=== PATIENT | male | born 1975 | race African-American/Black ===

== ENCOUNTER 2017-04-12 09:30 | Inpatient (IN) | payer OTHER ==
[~2017-04-12] VITALS: Ht 165.1 cm; Wt 81.6 kg
[~2017-04-12 09:30] MED LIST: BACTROBAN OINT22 GM TP; CETAPHIL1 BAR TP; COUGH CONT100 MG/5 M PO; HIBICLENS118 ML TP; LEVSIN/SL0.125 MG SL; NABUMETONE750 MG; NEURONTIN300 MG; PHOSLO667 M1 PO; PROCTOFOAM-HC 110 GM RC; PROTONIX40 MG PO; RELAFEN500 MG PO; RENVELA800 MG; RIFAMPIN300 MG; SEPTRA DS TABLE1 TAB PO; TESSALON PERLE100 M1 PO; TUSSI-PRES LIQ118 ML PO; ZYRTEC10 M3 PO; ZYRTEC10 MG
[2017-04-12] MEDS ORDERED: LOPID PO (12:23)
[2017-04-12] MEDS ORDERED: KAYEXALATE15 GM/60 M PO (12:23)
[2017-04-12] MEDS ORDERED: RENVELA (12:24)
[2017-04-30] MEDS ORDERED: OXYC1TAB9 PO (13:20)
[2017-04-30] MEDS ORDERED: Intestinex CAP PO (13:20)
== END 2017-04-30 17:14 | disposition home or self-care (01) | DRG 329 ==
LOC: SURH 04-23 08:03 → O/R 04-23 08:03 → SURG 04-23 09:30 → SURH 04-23 19:10
PROVIDERS: Surgery
PROC: 0DT80ZZ Resection of Small Intestine, Open Approach (ICD-10-PCS; 2017-04-23)
PROC: 0DC80ZZ Extirpation of Matter from Small Intestine, Open Approach (ICD-10-PCS; 2017-04-23)
PROC: 0DJD8ZZ Inspection of Lower Intestinal Tract, Via Natural or Artificial Opening Endoscopic (ICD-10-PCS; 2017-04-23)
PROC: 0DTN0ZZ Resection of Sigmoid Colon, Open Approach (ICD-10-PCS; principal; 2017-04-23 14:00)
PROC: 0DJD4ZZ Inspection of Lower Intestinal Tract, Percutaneous Endoscopic Approach (ICD-10-PCS; 2017-04-23 14:00)
PROC: 5A1D70Z Performance of Urinary Filtration, Intermittent, Less than 6 Hours Per Day (ICD-10-PCS; 2017-04-24)
PROC: 3E0F7GC Introduction of Other Therapeutic Substance into Respiratory Tract, Via Natural or Artificial Opening (ICD-10-PCS; 2017-04-25)
DX: K57.20 Diverticulitis of large intestine with perforation and abscess without bleeding (principal); N18.6 End stage renal disease; K63.2 Fistula of intestine; Z99.2 Dependence on renal dialysis; E87.5 Hyperkalemia; R05 Cough; R06.2 Wheezing

== ENCOUNTER → 2017-05-29 | Outpatient (CLI) | payer OTHER ==
[~2017-05-29] MED LIST changes: +ACIDOPHILUS1 EAC3 PO; +AMOX-CLAV 875-1 EACH PO; +Intestinex CAP PO; +KAYEXALATE15 GM/60 M PO; +LOPID PO; +OXYC1TAB9 PO; +RENVELA
== END | disposition home or self-care (01) ==
LOC: WOUND MED 09:43 → EDSTATUS 09:44
DX: T81.32XA Disruption of internal operation (surgical) wound, not elsewhere classified, initial encounter (principal)
CPT/HCPCS: 11042; A4554; A4930; A6216; G0463

== ENCOUNTER → 2017-06-05 | Outpatient (CLI) | payer OTHER | END | disposition home or self-care (01) | LOC: WOUND MED 10:20 → EDSTATUS 16:05 | DX: T81.32XD Disruption of internal operation (surgical) wound, not elsewhere classified, subsequent encounter (principal) | CPT/HCPCS: 11042; A4554; A4930; A6216; A6219 ==

== ENCOUNTER → 2017-06-12 | Outpatient (CLI) | payer OTHER | END | disposition home or self-care (01) | LOC: WOUND MED 09:13 | DX: T81.32XD Disruption of internal operation (surgical) wound, not elsewhere classified, subsequent encounter (principal) | CPT/HCPCS: 11042; A4554; A4930; A6216; A6219 ==

== ENCOUNTER → 2017-06-19 | Outpatient (CLI) | payer OTHER | END | disposition home or self-care (01) | LOC: WOUND MED 10:23 | DX: T81.32XD Disruption of internal operation (surgical) wound, not elsewhere classified, subsequent encounter (principal) | CPT/HCPCS: 11042; A4554; A4930; A6212; A6216; A6219 ==

== ENCOUNTER → 2017-06-26 | Outpatient (CLI) | payer OTHER | END | disposition home or self-care (01) | LOC: WOUND MED 09:37 | DX: T81.32XD Disruption of internal operation (surgical) wound, not elsewhere classified, subsequent encounter (principal) | CPT/HCPCS: 11042; A4554; A4930; A6212; A6216; A6219 ==

== ENCOUNTER → 2017-07-03 | Outpatient (CLI) | payer OTHER | END | disposition home or self-care (01) | LOC: WOUND MED 10:43 | DX: T81.32XD Disruption of internal operation (surgical) wound, not elsewhere classified, subsequent encounter (principal) | CPT/HCPCS: A4554; A4930; A6216; G0463 ==

== ENCOUNTER → 2017-08-09 | Emergency (ER) | payer OTHER ==
[~2017-08-09] VITALS: Ht 165.1 cm; Wt 83.3 kg
== END | disposition home or self-care (01) ==
LOC: ER 07:03
DX: M35.4 Diffuse (eosinophilic) fasciitis (principal)

== ENCOUNTER 2017-08-30 11:16 | Emergency (ER) | payer OTHER ==
[~2017-08-30] VITALS: Ht 170.2 cm; Wt 83.5 kg
[2017-08-30] MEDS ORDERED: ANALPRAM HC 2.530 GM RECTAL (12:24)
[2017-08-30] MEDS ORDERED: BENADRYL25 MG PO (12:24)
== END 2017-08-30 12:40 | disposition home or self-care (01) ==
LOC: ER 11:16
DX: L29.0 Pruritus ani (principal)

== ENCOUNTER 2017-10-20 08:33 | Emergency (ER) | payer OTHER ==
[~2017-10-20] VITALS: Ht 165.1 cm; Wt 87.1 kg
[~2017-10-20 08:33] MED LIST changes: +ANALPRAM HC 2.530 GM RECTAL; +BENADRYL25 MG PO
== END 2017-10-20 09:50 | disposition home or self-care (01) ==
LOC: ER 08:33
DX: K59.09 Other constipation (principal)

== ENCOUNTER 2017-11-24 08:14 | Emergency (ER) | payer OTHER ==
[~2017-11-24] VITALS: Ht 165.1 cm; Wt 86.6 kg
== END 2017-11-24 10:22 | disposition home or self-care (01) ==
LOC: ER 08:14
DX: R10.2 Pelvic and perineal pain (principal)

== ENCOUNTER → 2017-12-11 06:34 | Outpatient (CLI) | payer OTHER | END | disposition home or self-care (01) | LOC: LAB 06:34 | DX: E03.8 Other specified hypothyroidism (principal) ==

== ENCOUNTER 2017-12-11 13:12 | Outpatient (CLI) | payer OTHER | END 2017-12-11 18:59 | disposition home or self-care (01) | LOC: NUCLEAR 13:12 | DX: I42.8 Other cardiomyopathies (principal) | CPT/HCPCS: 78472; 78496; A9560 ==

== ENCOUNTER 2017-12-15 17:55 | Emergency (ER) | payer OTHER ==
[~2017-12-15] VITALS: Ht 165.1 cm; Wt 85.3 kg
== END 2017-12-15 22:14 | disposition home or self-care (01) ==
LOC: ER 17:55
DX: I95.89 Other hypotension (principal); N19 Unspecified kidney failure; R42 Dizziness and giddiness; Z99.2 Dependence on renal dialysis

== ENCOUNTER 2018-02-07 08:59 | Outpatient (CLI) | payer OTHER | END 2018-02-07 09:03 | disposition home or self-care (01) | LOC: LAB 08:59 | DX: E03.9 Hypothyroidism, unspecified (principal) ==

== ENCOUNTER 2018-03-12 09:16 | Emergency (ER) | payer OTHER ==
[~2018-03-12] VITALS: Ht 165.1 cm; Wt 90.7 kg
== END 2018-03-12 14:09 | disposition home or self-care (01) ==
LOC: ER 09:16
DX: M75.52 Bursitis of left shoulder (principal)

== ENCOUNTER → 2018-05-11 | Emergency (ER) | payer OTHER ==
[~2018-05-11] VITALS: Ht 165.1 cm; Wt 90.7 kg
[~2018-05-11] MED LIST changes: +KAYEXALATE15 GM/60 M; +ZANTAC300 MG
== END | disposition home or self-care (01) ==
LOC: ER 07:33
DX: K21.9 Gastro-esophageal reflux disease without esophagitis (principal)

== ENCOUNTER 2018-07-03 12:57 | Emergency (ER) | payer OTHER ==
[~2018-07-03] VITALS: Ht 165.1 cm; Wt 87.1 kg
== END 2018-07-03 16:30 | disposition home or self-care (01) ==
LOC: ER 12:57
DX: S70.02XA Contusion of left hip, initial encounter (principal); W18.09XA Striking against other object with subsequent fall, initial encounter; Y93.89 Activity, other specified; Y92.018 Other place in single-family (private) house as the place of occurrence of the external cause; Y99.8 Other external cause status

== ENCOUNTER 2018-10-31 09:38 | Emergency (ER) | payer OTHER ==
[~2018-10-31] VITALS: Ht 167.6 cm; Wt 87.5 kg
== END 2018-10-31 14:00 | disposition home or self-care (01) ==
LOC: ER 09:38
DX: R53.81 Other malaise (principal)

== ENCOUNTER → 2019-07-05 | Emergency (ER) | payer OTHER ==
[~2019-07-05] VITALS: Ht 165.1 cm; Wt 86.2 kg
[~2019-07-05] MED LIST changes: +STOOL SOFTENER100 M1 PO
== END | disposition home or self-care (01) ==
LOC: ER 01:25
DX: K62.89 Other specified diseases of anus and rectum (principal)

== ENCOUNTER 2019-07-08 08:37 | Outpatient (CLI) | payer OTHER | END 2019-07-08 10:00 | disposition home or self-care (01) | LOC: WOUND MED 08:37 | DX: L98.492 Non-pressure chronic ulcer of skin of other sites with fat layer exposed (principal) | CPT/HCPCS: G0463; A4554; A4930; A6216; A6219 ==

== ENCOUNTER 2019-07-15 09:02 | Outpatient (CLI) | payer OTHER | END 2019-07-15 10:00 | disposition home or self-care (01) | LOC: WOUND MED 09:02 | DX: L98.492 Non-pressure chronic ulcer of skin of other sites with fat layer exposed (principal) | CPT/HCPCS: 11042; A4554; A4930; A6021; A6216; A6219 ==

== ENCOUNTER 2019-07-22 08:55 | Outpatient (CLI) | payer OTHER | END 2019-07-22 09:30 | disposition home or self-care (01) | LOC: WOUND MED 08:55 | DX: L98.492 Non-pressure chronic ulcer of skin of other sites with fat layer exposed (principal) | CPT/HCPCS: 11042; A4554; A4930; A6216; A6219 ==

== ENCOUNTER 2019-07-29 08:49 | Outpatient (CLI) | payer OTHER | END 2019-07-29 09:22 | disposition home or self-care (01) | LOC: WOUND MED 08:49 | DX: L98.492 Non-pressure chronic ulcer of skin of other sites with fat layer exposed (principal) | CPT/HCPCS: 11042; A4554; A4930; A6021; A6216 ==

== ENCOUNTER 2019-08-05 07:46 | Outpatient (CLI) | payer OTHER | END 2019-08-05 08:34 | disposition home or self-care (01) | LOC: WOUND MED 07:46 | DX: L98.492 Non-pressure chronic ulcer of skin of other sites with fat layer exposed (principal) | CPT/HCPCS: 11042; A4554; A4930; A6216; A6219 ==

== ENCOUNTER 2019-08-12 09:55 | Outpatient (CLI) | payer OTHER | END 2019-08-12 10:30 | disposition home or self-care (01) | LOC: WOUND MED 09:55 | DX: L98.492 Non-pressure chronic ulcer of skin of other sites with fat layer exposed (principal) | CPT/HCPCS: 11042; A4554; A4930; A6216; A6219 ==

== ENCOUNTER 2019-08-19 07:41 | Outpatient (CLI) | payer OTHER | END 2019-08-19 11:45 | disposition home or self-care (01) | LOC: WOUND MED 07:41 | DX: L98.492 Non-pressure chronic ulcer of skin of other sites with fat layer exposed (principal) | CPT/HCPCS: G0463; A4554; A4930; A6216 ==

== ENCOUNTER 2019-10-30 06:08 | Emergency (ER) | payer OTHER ==
[~2019-10-30] VITALS: Ht 165.1 cm; Wt 83.9 kg
[2019-10-30] MEDS ORDERED: NEURONTIN300 MG (06:34)
[2019-10-30] MEDS ORDERED: NASAL MIST126 ML (06:34)
== END 2019-10-30 12:10 | disposition home or self-care (01) ==
LOC: ER 06:08
DX: M79.671 Pain in right foot (principal); Z87.81 Personal history of (healed) traumatic fracture

== ENCOUNTER 2020-01-17 17:38 | Emergency (ER) | payer OTHER ==
[~2020-01-17] VITALS: Ht 165.1 cm; Wt 86.2 kg
[~2020-01-17 17:38] MED LIST changes: +NASAL MIST126 ML
[2020-01-17] MEDS ORDERED: CALCIUM ACETATE (18:31)
== END 2020-01-17 22:18 | disposition home or self-care (01) ==
LOC: ER 17:38
DX: K64.4 Residual hemorrhoidal skin tags (principal)

== ENCOUNTER 2020-01-21 00:22 | Emergency (ER) | payer OTHER ==
[~2020-01-21] VITALS: Ht 165.1 cm; Wt 87.1 kg
[~2020-01-21 00:22] MED LIST changes: +CALCIUM ACETATE
[2020-01-21] MEDS ORDERED: MOBIC15 MG PO ×2 (02:51→02:52)
[2020-01-21] MEDS ORDERED: ANUSOL-HC25 MG RECTAL (02:51)
== END 2020-01-21 03:09 | disposition home or self-care (01) ==
LOC: ER 00:22
DX: K64.8 Other hemorrhoids (principal)

== ENCOUNTER 2020-02-12 08:59 | Emergency (ER) | payer OTHER ==
[~2020-02-12] VITALS: Ht 165.1 cm; Wt 86.2 kg
[~2020-02-12 08:59] MED LIST changes: +ANUSOL-HC25 MG RECTAL; +MOBIC15 MG PO
[2020-02-12] MEDS ORDERED: RECTICARE30 GM TOP (12:18)
[2020-02-12] MEDS ORDERED: POLY119PG PO (12:18)
== END 2020-02-12 12:31 | disposition home or self-care (01) ==
LOC: ER 08:59
DX: K64.8 Other hemorrhoids (principal); K62.89 Other specified diseases of anus and rectum; Z03.818 Encounter for observation for suspected exposure to other biological agents ruled out

== ENCOUNTER 2020-03-25 05:35 | Day surgery (SDC) | payer OTHER ==
[~2020-03-25 05:35] MED LIST changes: +NABUMETONE750 MG PO; +POLY119PG PO; +RECTICARE30 GM TOP
[2020-03-25] MEDS ORDERED: RECTICARE30 GM TOP (08:39)
[2020-03-25] MEDS ORDERED: PERCOCET 5-3251 EACH PO (08:39)
== END 2020-03-25 15:30 | disposition home or self-care (01) ==
LOC: CIR.AMB 05:35 → EDBD 09:00 → CIR.AMB 09:00
PROVIDERS: ATTEND Surgery
DX: K60.1 Chronic anal fissure (principal); Z20.828 Contact with and (suspected) exposure to other viral communicable diseases

== ENCOUNTER 2020-06-10 17:31 | Emergency (ER) | payer OTHER ==
[~2020-06-10] VITALS: Ht 165.1 cm; Wt 89.8 kg
[~2020-06-10 17:31] MED LIST changes: +PERCOCET 5-3251 EACH PO
== END 2020-06-10 19:52 | disposition home or self-care (01) ==
LOC: ER 17:31
DX: H92.02 Otalgia, left ear (principal); T16.2XXA Foreign body in left ear, initial encounter; X58.XXXA Exposure to other specified factors, initial encounter; Y93.89 Activity, other specified; Y92.89 Other specified places as the place of occurrence of the external cause; Y99.8 Other external cause status

== ENCOUNTER 2020-06-29 09:12 | Outpatient (CLI) | payer OTHER | END 2020-06-29 10:00 | disposition home or self-care (01) | LOC: WOUND MED 09:12 | PROVIDERS: ATTEND Specialist | DX: L98.498 Non-pressure chronic ulcer of skin of other sites with other specified severity (principal); L08.89 Other specified local infections of the skin and subcutaneous tissue | CPT/HCPCS: 11042; A4554; A4930; A6216; A6219; G0463 ==

== ENCOUNTER 2020-07-02 12:57 | Outpatient (CLI) | payer OTHER | END 2020-07-02 13:15 | disposition home or self-care (01) | LOC: WOUND MED 12:57 | PROVIDERS: ATTEND Specialist | DX: L98.498 Non-pressure chronic ulcer of skin of other sites with other specified severity (principal); L08.89 Other specified local infections of the skin and subcutaneous tissue | CPT/HCPCS: 97602; A4554; A4930; A6021; A6216; A6219 ==

== ENCOUNTER 2020-07-06 09:08 | Outpatient (CLI) | payer OTHER | END 2020-07-06 11:33 | disposition home or self-care (01) | LOC: WOUND MED 09:08 | PROVIDERS: ATTEND Specialist | DX: L98.498 Non-pressure chronic ulcer of skin of other sites with other specified severity (principal); L08.89 Other specified local infections of the skin and subcutaneous tissue | CPT/HCPCS: 11042; A4554; A4930; A6216 ==

== ENCOUNTER 2020-07-08 12:42 | Outpatient (CLI) | payer OTHER | END 2020-07-08 14:40 | disposition home or self-care (01) | LOC: WOUND MED 12:42 | PROVIDERS: ATTEND Specialist | DX: L98.498 Non-pressure chronic ulcer of skin of other sites with other specified severity (principal); L08.89 Other specified local infections of the skin and subcutaneous tissue | CPT/HCPCS: 97602; A4554; A4930; A6216; A6219; A6220 ==

== ENCOUNTER 2020-07-13 10:54 | Outpatient (CLI) | payer OTHER | END 2020-07-13 11:45 | disposition home or self-care (01) | LOC: WOUND MED 10:54 | PROVIDERS: ATTEND Specialist | DX: L98.498 Non-pressure chronic ulcer of skin of other sites with other specified severity (principal) | CPT/HCPCS: 11042; A4554; A4930; A6216; A6219 ==

== ENCOUNTER 2020-07-20 10:15 | Outpatient (CLI) | payer OTHER | END 2020-07-20 11:18 | disposition home or self-care (01) | LOC: WOUND MED 10:15 | PROVIDERS: ATTEND Specialist | DX: L98.498 Non-pressure chronic ulcer of skin of other sites with other specified severity (principal) | CPT/HCPCS: G0463; A4554; A4930; A6216 ==

== ENCOUNTER 2021-03-15 08:53 | Emergency (ER) | payer OTHER ==
[~2021-03-15] VITALS: Ht 165.1 cm; Wt 84.8 kg
[~2021-03-15 08:53] MED LIST changes: +[UNRECOGNIZED DRUG - OTHER]; +[UNRECOGNIZED DRUG - OTHER]
[2021-03-15] MEDS ORDERED: [UNRECOGNIZED DRUG - OTHER] (09:08)
[2021-03-15] MEDS ORDERED: SKELAGESIC PO (12:56)
[2021-03-24] MEDS ORDERED: PHOSLO (18:48)
[2021-03-24] MEDS ORDERED: MOTRIN 800 MG. (18:48)
== END 2021-03-15 13:11 | disposition home or self-care (01) ==
LOC: ER 08:53
DX: M89.8X1 Other specified disorders of bone, shoulder (principal)

== ENCOUNTER → 2021-03-24 | Emergency (ER) | payer OTHER ==
[~2021-03-24] VITALS: Ht 165.1 cm; Wt 84.8 kg
[~2021-03-24] MED LIST changes: +MOTRIN 800 MG.; +PHOSLO; +SKELAGESIC PO; +[UNRECOGNIZED DRUG - OTHER]
== END | disposition home or self-care (01) ==
LOC: ER 18:05
DX: T82.898A Other specified complication of vascular prosthetic devices, implants and grafts, initial encounter (principal); T81.30XA Disruption of wound, unspecified, initial encounter

== ENCOUNTER 2021-04-26 10:57 | Outpatient (CLI) | payer OTHER | END 2021-04-26 15:36 | disposition home or self-care (01) | LOC: WOUND MED 10:57 | PROVIDERS: ATTEND Specialist | DX: L97.111 Non-pressure chronic ulcer of right thigh limited to breakdown of skin (principal); R60.0 Localized edema | CPT/HCPCS: A4554; A4930; A6216; A6219; G0463 ==

== ENCOUNTER 2021-05-03 09:31 | Outpatient (CLI) | payer OTHER | END 2021-05-03 14:26 | disposition home or self-care (01) | LOC: WOUND MED 09:31 | PROVIDERS: ATTEND Specialist | DX: L97.111 Non-pressure chronic ulcer of right thigh limited to breakdown of skin (principal); R60.0 Localized edema | CPT/HCPCS: 11042; A4554; A4930; A6216; A6219 ==

== ENCOUNTER 2021-05-24 09:34 | Outpatient (CLI) | payer OTHER | END 2021-05-24 10:00 | disposition home or self-care (01) | LOC: WOUND MED 09:34 | PROVIDERS: ATTEND Specialist | DX: E11.22 Type 2 diabetes mellitus with diabetic chronic kidney disease (principal); N18.6 End stage renal disease; T82.41XA Breakdown (mechanical) of vascular dialysis catheter, initial encounter; Z99.2 Dependence on renal dialysis; Z91.15 Patient's noncompliance with renal dialysis; Z49.01 Encounter for fitting and adjustment of extracorporeal dialysis catheter; Z79.4 Long term (current) use of insulin | CPT/HCPCS: 11042; A4930; A6219; A6223; A6251 ==

== ENCOUNTER 2022-01-17 10:15 | Outpatient (CLI) | payer OTHER | END 2022-01-17 10:30 | disposition home or self-care (01) | LOC: WOUND MED 10:15 | PROVIDERS: ATTEND Specialist | DX: T81.30XA Disruption of wound, unspecified, initial encounter (principal) | CPT/HCPCS: A4927; A6219; A6223; G0463 ==

== ENCOUNTER 2022-03-14 08:33 | Outpatient (CLI) | payer OTHER | END 2022-03-14 08:40 | disposition home or self-care (01) | LOC: RAD 08:33 | PROVIDERS: ATTEND Internal Medicine Cardiovascular Disease | DX: M12.9 Arthropathy, unspecified (principal) ==

== ENCOUNTER 2022-09-07 07:49 | Outpatient (CLI) | payer OTHER | END 2022-09-07 07:53 | disposition home or self-care (01) | LOC: LAB 07:49 | PROVIDERS: ATTEND Internal Medicine Cardiovascular Disease | DX: I10 Essential (primary) hypertension (principal); E11.9 Type 2 diabetes mellitus without complications; E03.9 Hypothyroidism, unspecified; E88.2 Lipomatosis, not elsewhere classified; N40.0 Benign prostatic hyperplasia without lower urinary tract symptoms; Z12.11 Encounter for screening for malignant neoplasm of colon; K92.0 Hematemesis ==

== ENCOUNTER → 2022-09-08 13:38 | Outpatient (CLI) | payer OTHER | END | disposition home or self-care (01) | LOC: LAB 13:38 | PROVIDERS: ATTEND Internal Medicine Cardiovascular Disease | DX: I10 Essential (primary) hypertension (principal); E11.9 Type 2 diabetes mellitus without complications; E03.9 Hypothyroidism, unspecified; E78.2 Mixed hyperlipidemia; N40.0 Benign prostatic hyperplasia without lower urinary tract symptoms; Z12.11 Encounter for screening for malignant neoplasm of colon; K92.0 Hematemesis ==

== ENCOUNTER 2022-12-15 14:07 | Emergency (ER) | payer OTHER ==
[~2022-12-15] VITALS: Ht 165.1 cm; Wt 87.1 kg
[2022-12-15] MEDS ORDERED: [UNRECOGNIZED DRUG - OTHER] (14:32)
[2022-12-15] MEDS ORDERED: RENVELA0.8 GM (14:32)
[2022-12-15] MEDS ORDERED: GUAIFENESIN (14:33)
[2022-12-15] MEDS ORDERED: ZITHROMAX500 MG PO (18:41)
== END 2022-12-15 19:00 | disposition home or self-care (01) ==
LOC: ER 14:07
PROVIDERS: General Practice
DX: J06.9 Acute upper respiratory infection, unspecified (principal); Z20.822 Contact with and (suspected) exposure to COVID-19
CPT/HCPCS: 36415; 71045; 96365; 96366; 99283; J7030

== ENCOUNTER 2023-02-22 08:46 | Outpatient (CLI) | payer OTHER ==
[~2023-02-22 08:46] MED LIST changes: +GUAIFENESIN; +RENVELA0.8 GM; +ZITHROMAX500 MG PO; +[UNRECOGNIZED DRUG - OTHER]
== END 2023-02-22 08:50 | disposition home or self-care (01) ==
LOC: NUCLEAR 08:46
DX: R20.1 Hypoesthesia of skin (principal)

== ENCOUNTER 2023-07-10 07:31 | Outpatient (CLI) | payer OTHER ==
[2023-07-10 09:02] LABS: HEMATOCRIT 41.5 % (39.0-48.0); HEMOGLOBIN 13.4 g/dL (13-16.00); MEAN CELL VOLUME 80.8 fL (80.0-100.00); MEAN CORPUSCULAR HEMOGLOBIN 26.1 pg (27.00-32.0); MEAN CORPUSCULAR HGB CONC 32.3 g/dl (32.0-36.0); PLATELET COUNT 133 K/uL (150-450); RED BLOOD COUNT 5.13 M/uL (4.00-6.00); RED CELL DISTRIBUTION WIDTH 18.9 % (11.5-14.5)
[2023-07-10 11:14] LABS: ob NEGATIVE (NEGATIVE)
[2023-07-10 11:26] LABS: ALBUMIN 3.7 gm/dL (3.4-5.0); BILIRUBIN TOTAL 0.66 mg/dL (0.3-1.2); CALCIUM 6.6 mg/dL (8.5-10.1); CHOL HDL RATIO 5.3 (0-5.0); GLOBULINA 4.5 G/DL (2.4-3.5); POTASSIUM 4.87 mEq/L (3.5-5.1); TOTAL PROTEIN 8.2 gm/dL (6.4-8.2); TSH 2.85 uIU/mL (0.358-3.74)
[2023-07-10 11:39] LABS: GFR 4.65
[2023-07-10 11:41] LABS: CREATININE SERUM 11.7 mg/dL (0.70-1.30)
[2023-07-10 17:00] LABS: PROSTATIC SPECIFIC ANTIGEN 1.11 NG/ML (0.010-4.00)
[2023-07-10 20:25] LABS: T4 TOTAL 9.89 UG/DL (4.5-12.1)
== END 2023-07-10 14:53 | disposition home or self-care (01) ==
LOC: LAB 07:31
PROVIDERS: ATTEND Internal Medicine Cardiovascular Disease
DX: I10 Essential (primary) hypertension (principal); E11.9 Type 2 diabetes mellitus without complications; E03.9 Hypothyroidism, unspecified; E78.2 Mixed hyperlipidemia; N40.0 Benign prostatic hyperplasia without lower urinary tract symptoms; E55.9 Vitamin D deficiency, unspecified; Z12.11 Encounter for screening for malignant neoplasm of colon; D64.0 Hereditary sideroblastic anemia

== ENCOUNTER 2024-08-20 14:47 | Emergency (ER) | payer OTHER ==
[~2024-08-20] VITALS: Ht 170.2 cm; Wt 85.7 kg
[2024-08-20] MEDS ORDERED: ELIQUIS5 MG PO (15:35)
[2024-08-20] MEDS ORDERED: FAMOTIDINE/PF 20 MG in 0.9 % SODIUM CHLORIDE 8 ML IV PUSH STA (16:13)
[2024-08-20] MEDS ORDERED: ONDANSETRON HCL 2 MG/ML VIAL IV ONE (16:15)
[2024-08-20] MEDS ORDERED: FAMOTIDINE/PF 20 MG/2 ML VIAL ONE (16:18)
[2024-08-20] MEDS ORDERED: ONDANSETRON HCL 2 MG/ML VIAL ONE (16:18)
[2024-08-20 17:01] LABS: HEMATOCRIT 36.2 % (39.0-48.0); HEMOGLOBIN 11.7 g/dL (13-16.00); MEAN CELL VOLUME 83.4 fL (80.0-100.00); MEAN CORPUSCULAR HGB CONC 32.4 g/dl (32.0-36.0); RED BLOOD COUNT 4.34 M/uL (4.00-6.00); RED CELL DISTRIBUTION WIDTH 19.3 % (11.5-14.5)
[2024-08-20 17:02] LABS: PLATELET COUNT 94 K/uL (150-450)
[2024-08-20 17:32] LABS: ALBUMIN 4.1 gm/dL (3.4-5.0); BILIRUBIN TOTAL 1.18 mg/dL (0.3-1.2); CALCIUM 9.2 mg/dL (8.5-10.1); GFR 8.05; GLOBULINA 4.3 G/DL (2.4-3.5); POTASSIUM 4.07 mEq/L (3.5-5.1); TOTAL PROTEIN 8.4 gm/dL (6.4-8.2)
[2024-08-20 17:52] LABS: CREATININE SERUM 7.22 mg/dL (0.70-1.30)
[2024-08-20] MEDS ORDERED: PEPCID AC20 MG PO (19:03)
== END 2024-08-20 19:05 | disposition home or self-care (01) ==
LOC: ER 17:16
PROVIDERS: General Practice
DX: K29.70 Gastritis, unspecified, without bleeding (principal); E11.22 Type 2 diabetes mellitus with diabetic chronic kidney disease; I12.0 Hypertensive chronic kidney disease with stage 5 chronic kidney disease or end stage renal disease; N18.6 End stage renal disease; Z99.2 Dependence on renal dialysis
CPT/HCPCS: 36415; 93005; 96365; 99283; J2405; J3490

== ENCOUNTER 2024-10-07 08:50 | Outpatient (CLI) | payer OTHER ==
[~2024-10-07 08:50] MED LIST changes: +ELIQUIS5 MG PO; +PEPCID AC20 MG PO
== END 2024-10-07 10:18 | disposition home or self-care (01) ==
LOC: RAD 08:50
PROVIDERS: ATTEND Internal Medicine Cardiovascular Disease
DX: J44.9 Chronic obstructive pulmonary disease, unspecified (principal); I10 Essential (primary) hypertension

== ENCOUNTER 2024-10-28 12:37 | Outpatient (CLI) | payer OTHER | END 2024-10-28 12:43 | disposition home or self-care (01) | LOC: RAD 12:37 | PROVIDERS: ATTEND Internal Medicine Cardiovascular Disease | DX: M12.9 Arthropathy, unspecified (principal) ==